=== PATIENT | male | born 1965 | race Caucasian/White ===

== ENCOUNTER 2021-09-16 07:34 | Outpatient (REF) | payer OTHER, SELFPAY ==
--- NOTE | ~2021-09-16 | XR_ITS ---
EXAMINATION: XR CHEST CLINICAL INFORMATION: Follow-up chest exam. COMPARISON: Previous chest x-ray with left RIBS 12/21/2012. TECHNIQUE: 2 views of the chest were obtained. FINDINGS: The lungs are well-expanded with patchy reticular and groundglass opacities throughout both lungs likely inflammatory or infectious etiology. The heart size and pulmonary vascularity is normal. No gross bony abnormality seen. XR/XR chest 2V IMPRESSION: Diffuse patchy reticular and groundglass opacities suggestive of inflammatory or infectious etiology. There are no recent chest exam available for comparison.
[2021-09-16 12:03] LABS: Alanine Aminotransferase 21 U/L (0-40); Alkaline Phosphatase 88 U/L (39-117); Anion Gap 10 (12-20); Aspartate Amino Transferase 18 U/L (5-37); Bilirubin Direct 0.2 mg/dL (0.0-0.5); Bilirubin Total 0.4 mg/dL (0.0-1.0); Blood Urea Nitrogen 11 mg/dL (9-16); Calcium 9.4 mg/dL (8.4-10.2); Carbon Dioxide 28 mmol/L (22-29); Chloride 106 mmol/L (96-108); Cholesterol 221 mg/dL; Estimated Glomerular Filt Rate > 60; Glucose Fasting 90 mg/dL (60-99); HDL Cholesterol 43 mg/dL; LDL Cholesterol Calculated 163 mg/dl; Potassium 4.4 mmol/L (3.3-5.1); Sodium 140 mmol/L (135-145); Total Protein 6.8 g/dL (6.5-8.0); Triglycerides 79 mg/dL
== END 2021-09-16 07:35 | disposition home or self-care (01) ==
LOC: HO.HMGCLDS 07:34
PROVIDERS: PCP Internal Medicine; Visit Provider Internal Medicine
DX: U07.1 COVID-19 (principal); J12.82 Pneumonia due to coronavirus disease 2019; R79.89 Other specified abnormal findings of blood chemistry; M21.611 Bunion of right foot; I10 Essential (primary) hypertension
CPT/HCPCS: 36415; 71046; 80048; 80053; 80061; 82248

== ENCOUNTER → 2021-09-28 11:35 | Outpatient (BNVA) | payer OTHER, SELFPAY | PROVIDERS: PCP Internal Medicine; Visit Provider Internal Medicine Pulmonary Disease | DX: U09.9 Post COVID-19 condition, unspecified (principal); R06.00 Dyspnea, unspecified; R91.8 Other nonspecific abnormal finding of lung field | CPT/HCPCS: 99202 ==

== ENCOUNTER 2021-10-19 08:14 | Outpatient (REF) | payer OTHER, SELFPAY ==
--- NOTE | 2021-10-19 11:25 | PFT_ITS ---
INDICATION: Dyspnea. SPIROMETRY: The FEV1 to FVC of 81% with an FEV1 of 3.93 L, which is 104% predicted and an FVC of 4.88 L which is 99% predicted. The patient refused the bronchodilator therapy, so therefore post bronchodilator numbers were not performed. Maximum voluntary ventilation 104% predicted. LUNG VOLUMES: Total lung capacity 91% of predicted with an expiratory reserve volume of 72% of predicted. DIFFUSION CAPACITY: DLCO 66% predicted. COMPARISONS: None to review. INTERPRETATION: No obstructive nor restrictive ventilatory defects identified. Again, bronchodilators were not used. Normal maximum voluntary ventilation. Lung volumes were within normal limits. However, the patient does have an isolated moderate diffusion impairment. Therefore, occult interstitial lung conditions and pulmonary vascular conditions should be considered. Should also correct for hemoglobin. Clinical correlation warranted. Les Lopez MD MR/MODL / [id number]
== END 2021-10-19 08:15 | disposition home or self-care (01) ==
LOC: HO.RESP 08:14
PROVIDERS: PCP Internal Medicine; Visit Provider Internal Medicine Pulmonary Disease
DX: U09.9 Post COVID-19 condition, unspecified (principal)
CPT/HCPCS: 94010; 94727; 94729

== ENCOUNTER 2021-10-19 08:59 | Outpatient (REF) | payer OTHER, SELFPAY ==
--- NOTE | ~2021-10-19 | CT_ITS ---
EXAMINATION: CT chest wo con. CLINICAL INFORMATION: Status post COVID. COMPARISON: No prior CT available for comparison. TECHNIQUE: Multidetector volumetric CT imaging of the chest was done. Axial MIP volume rendering provided. Sagittal and coronal reformatted images were obtained. This CT examination was performed using dose optimization techniques as appropriate, variously including the following: *Automated exposure control *Adjustment of mA and/or kV according to patient size (this includes techniques or standardized protocols for targeted exams where dose is matched to indication/reason for exam; i.e. extremities or head) *Use of iterative reconstruction technique CONTRAST: Noncontrasted study. 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 LUNGS: Lung parenchyma: There are patchy interstitial groundglass opacities involving upper and lower lobes, although nonspecific compatible with patient history of viral pneumonia. Lung nodules/masses: There is no suspicious lung mass. AIRWAYS: Trachea and bronchi are normal. PLEURA: No pleural effusion or pneumothorax. MEDIASTINUM AND YOLANDA: No mediastinal, hilar or axillary lymphadenopathy. No mediastinal mass. VESSELS: HEART AND PERICARDIUM: Thoracic aorta is normal in size. Heart is normal in size. No pericardial effusion. Mild coronary calcifications. Pulmonary arteries are normal in size. LOWER NECK, AXILLA: The visualized thyroid gland is unremarkable. No axillary mass or adenopathy. VISUALIZED ABDOMEN: Unremarkable CHEST WALL AND BONES: No chest wall mass. The visualized bony thorax is within normal limits. CT/CT chest wo con IMPRESSION: *Multiple bilateral patchy interstitial groundglass opacification diffusely involving both lungs, although nonspecific compatible with patient history of atypical viral pneumonia. *No dense lobar consolidation. *No Lymphadenopathy. No pleural effusion. *Mild coronary calcifications.
== END 2021-10-19 09:00 | disposition home or self-care (01) ==
LOC: HO.CT 08:59
PROVIDERS: PCP Internal Medicine; Visit Provider Internal Medicine Pulmonary Disease
DX: R93.89 Abnormal findings on diagnostic imaging of other specified body structures (principal); U09.9 Post COVID-19 condition, unspecified
CPT/HCPCS: 71250

== ENCOUNTER → 2021-11-20 08:30 | Outpatient (REF) | payer OTHER, SELFPAY ==
--- NOTE | 2021-11-20 08:33 | CA_ITS ---
Transthoracic Echocardiogram Patient (Last, First, Middle): Reilly Nino, Gender: Male Date of : 1965 Age: 56 Procedure Date: 11/20/2021 Procedure Type: Transthoracic Echocardiogram Location: OP Height: 177.8 cm Weight: 81.65 kg BSA: 2.00 m2 Heart Rate: bpm BP: 140 / 90 mmHg Draw Frame Tender: TANK Referring MD: Blossom Cui MD Symptoms: R93.89 - Abnormal findings on diagnostic imaging of other... Study Quality: Good Conclusions: - Normal left ventricular size, thickness, and systolic function. - Diastolic function is normal for age. - Normal right ventricular cavity size and systolic function. Findings Left Ventricle Normal left ventricular size, thickness, and systolic function. The visually estimated ejection fraction is between 55-60%. There is no evidence of regional wall motion abnormalities. Diastolic function is normal for age. Right Ventricle Normal right ventricular cavity size and systolic function. Atria The left atrium is normal in size. The right atrium is likely dilated. Aortic Valve Normal aortic valve structure and function. There is no aortic valve stenosis. There is no aortic valve regurgitation. Mitral Valve Normal mitral valve structure and function. There is no mitral valve regurgitation. There is no mitral valve stenosis. Pulmonic Valve Normal pulmonic valve structure and function. There is no pulmonic valve regurgitation. Tricuspid Valve Normal tricuspid valve structure and function. There is trace tricuspid valve regurgitation. Normal right atrial pressure. There is no evidence of pulmonary hypertension. Great Vessels All visible segments of the aorta are normal in size. The visualized portions of the pulmonary artery and branches are normal. Venous The inferior vena cava is normal in size and collapses greater than 50% with inspiration. Pericardium/Pleural There is no evidence of pericardial effusion. Prior Study Comparison No prior study available for comparison. Measurements 2D Linear Measurements IVSd: 1.00 0.6-0.9/0.6-1.0 cm LVIDd: 4.65 3.9-5.3/4.2-5.9 cm LVIDd Index: 2.33 2.4-3.2/2.2-3.1 cm/m2 LVIDs: 2.96 2.0-3.6 cm LVPWd: 1.14 0.7-1.1 cm Ao Root: 3.50 2.1-3.5 cm LA Diam: 3.70 2.7-3.8/3.0-4.0 cm LAIDs Index: 1.85 1.5-2.3 cm/m2 LV Mass: 221.00 67-162/88-224 g LV Mass Index: 110.50 43-95/49-115 g/m2 LVOT Diam: 2.10 3.0+(-)1.3 cm 2D Systolic Function EF 4C: 56.80 >55% EF 2C: 64.70 >55% EF BiP: 61.00 >55% Mitral Valve MV Pk E: 0.67 MV PK A: 0.66 MV Decel Time: 266.00 E/A: 1.00 E'Lateral: 13.20 E'Medial: 10.00 E/E' Med: 6.70 E/E' Lat: 5.10 PHT: 78.00 MVA PHT: 2.82 Decel [place]: 2.53 Aortic Valve AoV Pk Jose: 1.48 AoV Mn Jose: 1.09 AoV VTI: 0.34 AoV Pk Grad: 9.00 Aov Mn Grad: 5.00 IVY Cont.VTI: 2.36 LVOT LVOT Pk Jose: 1.11 LVOT Mn Jose: 0.82 LVOT VTI: 0.23 LVOT Pk Grad: 5.00 LVOT Mn Grad: 3.00 LVOT Diam: 2.10 LVOT Area: 3.46 Diastolic Function MV Pk E: 0.67 MV Pk A: 0.66 E/A: 1.00 E'Medial: 10.00 E/E' Med: 6.70 E' Laterial: 13.20 E/E' Lat: 5.10 Right Ventricle TAPSE (mm): 23.00 TVS' Jose: 10.60 Tricuspid Valve TR Pk Jose: 2.13 TR Pk Grad: 18.00 RA Press: 3.00 RVSP: 21.00 Great Vessels Aorta Ao Root-2D: 3.50 2.0-3.7 cm Ao Asc: 3.30 2.1-3.4 cm Ao Arch: 3.30 Updated in Other Vendor System with Status of Final Terry Ghosh MD electronically signed on 11/22/2021 10:09:41 PM with status of Final
== END ==
LOC: HO.CARD 08:30
PROVIDERS: PCP Internal Medicine; Visit Provider Internal Medicine
DX: R06.02 Shortness of breath (principal); U09.9 Post COVID-19 condition, unspecified; M79.89 Other specified soft tissue disorders; R93.89 Abnormal findings on diagnostic imaging of other specified body structures
CPT/HCPCS: 93306

== ENCOUNTER 2021-11-30 07:06 | Outpatient (REF) | payer OTHER, SELFPAY ==
[2021-11-30 11:38] LABS: Appearance Urine CLEAR; Color Urine YELLOW; Glucose Urine UA NEG (NEG); Leukocyte Esterase Urine NEG (NEG); Nitrite Urine NEG (NEG); PH 6.5 (5.0-8.0); Urine Blood NEG (NEG); Urine Ketones NEG (NEG); Urine Protein NEG (NEG-TRACE)
[2021-11-30 11:44] LABS: MANUAL DIFF FLAG NO
[2021-11-30 11:50] LABS: Basophils Percent Auto 0.4 % (0-2); Eosinophils Absolute Auto 0.1 X10*3/uL (0.0-0.4); Eosinophils Percent Auto 2.5 % (0-4); Hematocrit 44.8 % (42.0-52.0); Hemoglobin 14.6 g/dl (14.0-18.0); Imm Gran Abs Auto 0.02 X10*3/uL (0.00-0.03); Imm Gran Pct Auto 0.4 % (0.0-0.4); Lymphocytes Absolute Auto 2.1 X10*3/uL (1.2-4.9); Lymphocytes Percent Auto 40.4 % (20-40); Mean Corpuscular HGB Conc 32.6 g/dl (31.0-36.0); Mean Corpuscular Hemoglobin 30.6 pg (27.0-33.0); Mean Corpuscular Volume 93.9 fL (80.0-98.0); Mean Platelet Volume 11.5 fL (9.4-12.4); Neutrophils Absolute Auto 1.9 x10*3/uL (2.0-8.3); Neutrophils Percent Auto 37.3 % (45-73); Platelet Count 247 X10*3/uL (160-400); Red Blood Count 4.77 X10*6/uL (4.60-5.80); Red Cell Distribution Width 12.5 % (11.0-16.0); White Blood Count 5.2 X10*3/uL (4.8-10.8)
[2021-11-30 11:56] LABS: Estimated Average Glucose 105 mg/dL; Hemoglobin A1c % 5.3 %
[2021-11-30 12:12] LABS: Alanine Aminotransferase 20 U/L (0-40); Albumin Level 4.2 g/dL (3.5-5.0); Alkaline Phosphatase 70 U/L (39-117); Anion Gap 11 (12-20); Aspartate Amino Transferase 21 U/L (5-37); Bilirubin Total 0.2 mg/dL (0.0-1.0); Blood Urea Nitrogen 15 mg/dL (9-16); Calcium 9.5 mg/dL (8.4-10.2); Carbon Dioxide 30 mmol/L (22-29); Chloride 105 mmol/L (96-108); Cholesterol 193 mg/dL; Estimated Glomerular Filt Rate > 60; Glucose Fasting 99 mg/dL (60-99); HDL Cholesterol 43 mg/dL; LDL Cholesterol Calculated 138 mg/dl; Potassium 4.8 mmol/L (3.3-5.1); Sodium 141 mmol/L (135-145); Triglycerides 64 mg/dL
[2021-11-30 12:19] LABS: TSH reflex Free T4 1.69 uIU/mL (0.32-4.0)
== END 2021-11-30 07:07 | disposition home or self-care (01) ==
LOC: HO.HMGCLDS 07:06
PROVIDERS: Visit Provider Internal Medicine
DX: E78.9 Disorder of lipoprotein metabolism, unspecified (principal); I10 Essential (primary) hypertension; M79.89 Other specified soft tissue disorders; R35.89 Other polyuria; R68.2 Dry mouth, unspecified; R79.89 Other specified abnormal findings of blood chemistry; I34.1 Nonrheumatic mitral (valve) prolapse
CPT/HCPCS: 36415; 80053; 80061; 81003; 83036; 84443; 85025

== ENCOUNTER 2022-07-21 08:56 | Outpatient (REF) | payer OTHER, SELFPAY ==
[2022-07-21 11:40] LABS: Alanine Aminotransferase 26 U/L (0-40); Albumin Level 4.6 g/dL (3.5-5.0); Alkaline Phosphatase 54 U/L (39-117); Anion Gap 12 (12-20); Aspartate Amino Transferase 23 U/L (5-37); Bilirubin Total 0.7 mg/dL (0.0-1.0); Blood Urea Nitrogen 20 mg/dL (9-16); Calcium 9.5 mg/dL (8.4-10.2); Carbon Dioxide 29 mmol/L (22-29); Chloride 101 mmol/L (96-108); Estimated Glomerular Filt Rate > 60; Glucose Random 62 mg/dL (60-115); Potassium 3.8 mmol/L (3.3-5.1); Sodium 138 mmol/L (135-145); Total Protein 7.4 g/dL (6.5-8.0)
== END 2022-07-21 08:57 | disposition home or self-care (01) ==
LOC: HO.HMGCLDS 08:56
PROVIDERS: PCP Internal Medicine; Visit Provider Internal Medicine
DX: Z00.01 Encounter for general adult medical examination with abnormal findings (principal); E78.9 Disorder of lipoprotein metabolism, unspecified; I10 Essential (primary) hypertension
CPT/HCPCS: 36415; 80053

== ENCOUNTER 2023-01-26 06:43 | Outpatient (REF) | payer OTHER, SELFPAY ==
[2023-01-26 11:39] LABS: MANUAL DIFF FLAG NO
[2023-01-26 11:57] LABS: Basophils Percent Auto 0.5 % (0-2); Eosinophils Absolute Auto 0.2 X10*3/uL (0.0-0.4); Eosinophils Percent Auto 2.9 % (0-4); Hematocrit 43.5 % (42.0-52.0); Hemoglobin 14.6 g/dl (14.0-18.0); Imm Gran Abs Auto 0.01 X10*3/uL (0.00-0.03); Imm Gran Pct Auto 0.2 % (0.0-0.4); Lymphocytes Absolute Auto 2.5 X10*3/uL (1.2-4.9); Lymphocytes Percent Auto 44.4 % (20-40); Mean Corpuscular HGB Conc 33.6 g/dl (31.0-36.0); Mean Corpuscular Hemoglobin 31.1 pg (27.0-33.0); Mean Corpuscular Volume 92.8 fL (80.0-98.0); Mean Platelet Volume 10.7 fL (9.4-12.4); Monocytes Absolute Auto 0.7 X10*3/uL (0.1-1.2); Monocytes Percent Auto 12.2 % (2-11); Neutrophils Absolute Auto 2.2 x10*3/uL (2.0-8.3); Neutrophils Percent Auto 39.8 % (45-73); Platelet Count 251 X10*3/uL (160-400); Red Blood Count 4.69 X10*6/uL (4.60-5.80); Red Cell Distribution Width 12.9 % (11.0-16.0); White Blood Count 5.6 X10*3/uL (4.8-10.8)
[2023-01-26 12:18] LABS: Alanine Aminotransferase 24 U/L (0-40); Albumin Level 4.3 g/dL (3.5-5.0); Alkaline Phosphatase 58 U/L (39-117); Anion Gap 12 (12-20); Aspartate Amino Transferase 21 U/L (5-37); Bilirubin Total 0.7 mg/dL (0.0-1.0); Blood Urea Nitrogen 20 mg/dL (9-16); Calcium 9.4 mg/dL (8.4-10.2); Carbon Dioxide 28 mmol/L (22-29); Chloride 106 mmol/L (96-108); Cholesterol 235 mg/dL; Estimated Glomerular Filt Rate > 60; Glucose Fasting 94 mg/dL (60-99); Glucose Random 93 mg/dL (60-115); HDL Cholesterol 47 mg/dL; LDL Cholesterol Calculated 172 mg/dl; Potassium 4.1 mmol/L (3.3-5.1); Sodium 142 mmol/L (135-145); Triglycerides 84 mg/dL; Uric Acid 6.8 mg/dL (3.4-7.0)
[2023-01-26 12:37] LABS: TSH reflex Free T4 2.33 uIU/mL (0.32-4.0)
== END 2023-01-26 06:44 | disposition home or self-care (01) ==
LOC: HO.HMGCLDS 06:43
PROVIDERS: PCP Internal Medicine; Visit Provider Internal Medicine
DX: Z00.01 Encounter for general adult medical examination with abnormal findings (principal); I10 Essential (primary) hypertension; M79.674 Pain in right toe(s)
CPT/HCPCS: 36415; 80053; 80061; 84443; 84550; 85025

== ENCOUNTER 2023-05-17 08:38 | Outpatient (AMB) | payer OTHER, SELFPAY ==
--- NOTE | 2023-05-17 08:41 | MHC.PC.OV ---
Vital Signs 05/17/23 08:43 Height 51 ft Weight 185 lb 2 oz BMI 0.3 BP 128/86 Blood Pressure Location Rt brachial Position Sitting Pulse 84 Pulse Source Pulse Oximeter Pulse Oximetry (%) 98 Oxygen Delivery Method Room Air Intake Visit Reasons: 4m follow up labs Allergies lisinopril Allergy (Unknown, Verified 05/17/23 08:43) cough Medication List - Last Reconciled 05/17/23 by Blossom Cui MD atorvastatin 20 mg PO DAILY losartan-hydrochlorothiazide 100-25 mg 1 tab PO DAILY 90 days Tobacco use date assessed: 05/17/23 Dental Screening Dental Screen Date: 05/17/23 Did you have a dental visit in the last 12 months?: Yes Did you have a dental problem in the last 6 months where you did not have access to dental care?: No Was dental information given to patient?: No HPI 4m follow up labs HPI Details Patient is a 58-year-old male came in today for his regular follow-up appointment His cholesterol came back high in December I sent simvastatin for him which he never started Patient says that he was trying to control his diet and would like to see what the numbers are now before he starts the medication Lab order placed to be done fasting Blood pressure is 128/86 patient is tolerating medication no side effect. Follow-up 3 months [facility] Surgical History No pertinent past surgical history Family History Father HTN (hypertension) Diabetes mellitus Mother No problems noted. Sister HTN (hypertension) Social History Housing: House Patient Tobacco Use Status: Never used Tobacco e-Cigarette/Vaping Use: Never Used service: Yes Current occupational status: employed Cognitive needs: No Hearing needs: No Vision needs: No Questionnaire Thrive Questionnaire Date Thrive assessed: 11/27/21 AUDIT C Alcohol Use Questionnaire (AUDIT-C) 1. How often do you have a drink containing alcohol?: Never 3. How often do you have six or more drinks on one occasion?: Never Total Score: 0 Score Reviewed/Action Taken: Yes MAIK-7 AMB Questionnaire MAIK-7 Date MAIK - 7 assessed: 01/28/22 Source: Developed by Drs. Reji Henson, Manuela Jordan, Galdino Harris and colleagues, with an educational olman from [employer]. Review of Systems Const Denies chills and Denies fever(s) ENT Denies epistaxis and Denies nasal discharge Card Denies chest pain Resp Denies chest congestion, Denies cough and Denies hemoptysis GI Denies diarrhea and Denies nausea Skin/Breast Denies rash Neuro Reports no additional complaints Psych Reports no additional complaints Endo Reports no additional complaints Physical exam (Primary Care) Vital Signs: Last Vital Signs Pulse 84 05/17/23 08:43 BP 128/86 05/17/23 08:43 Pulse Ox 98 05/17/23 08:43 Oxygen Delivery Method Room Air 05/17/23 08:43 BMI result Body Mass Index 0.3 Tobacco/Smoking Status: Tobacco use Status Tobacco use date assessed 05/17/23 05/17/23 08:45 Patient Tobacco Use Status Never used Tobacco 05/17/23 08:45 e-Cigarette/Vaping Use Never Used 05/17/23 08:45 Thrive Assessment: Date of Thrive Assessment Date Thrive assessed 11/27/21 05/17/23 08:45 Const General: cooperative, comfortable and no acute distress Orientation/consciousness: patient oriented x3 HENMT Head: Yes normocephalic Eyes General: appearance normal, both eyes and all related structures Neck Neck: Yes supple Resp Effort & Inspection: normal respiratory effort, no cough and no stridor Cardio Rhythm: regular rhythm Heart sounds: S1 normal heart sound present and S2 normal heart sound present Skin General skin exam: turgor normal Neuro General: patient oriented x3, tone normal and moves all extremities Extrem Right lower extremity: no edema Left lower extremity: no edema Assessment and Plan Assessment & Plan (1) Essential (primary) hypertension: Code(s): I10 - Essential (primary) hypertension (2) Nonrheumatic mitral (valve) prolapse: Code(s): I34.1 - Nonrheumatic mitral (valve) prolapse (3) Pain of right great toe: Code(s): M79.674 - Pain in right toe(s) (4) Lipid disorder: Code(s): E78.9 - Disorder of lipoprotein metabolism, unspecified Plan Patient is a 58-year-old male came in today for his regular follow-up appointment His cholesterol came back high in December I sent simvastatin for him which he never started Patient says that he was trying to control his diet and would like to see what the numbers are now before he starts the medication Lab order placed to be done fasting Blood pressure is 128/86 patient is tolerating medication no side effect. 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 Follow-up 3 months Orders: Orders Comprehensive [place]. Panel Fast Today E78.9 - Disorder of lipoprotein metabolism, unspecified, I10 - Essential (primary) hypertension, I34.1 - Nonrheumatic mitral (valve) prolapse, M79.674 - Pain in right toe(s) Lipid Panel Today E78.9 - Disorder of lipoprotein metabolism, unspecified, I10 - Essential (primary) hypertension, I34.1 - Nonrheumatic mitral (valve) prolapse, M79.674 - Pain in right toe(s) Uric Acid Today E78.9 - Disorder of lipoprotein metabolism, unspecified, I10 - Essential (primary) hypertension, I34.1 - Nonrheumatic mitral (valve) prolapse, M79.674 - Pain in right toe(s) Coding Level of Care Code Est Pt Level 3 (10434) Diagnoses Essential (primary) hypertension I10 Nonrheumatic mitral (valve) prolapse I34.1 Pain of right great toe M79.674 Lipid disorder E78.9
[2023-05-17 08:43] VITALS: BP 128/86; PULSE 84; O2SAT 98
== END 2023-05-17 09:12 | disposition home or self-care (01) ==
PROVIDERS: Visit Provider Internal Medicine
DX: I10 Essential (primary) hypertension (principal); I34.1 Nonrheumatic mitral (valve) prolapse; M79.674 Pain in right toe(s); E78.9 Disorder of lipoprotein metabolism, unspecified
CPT/HCPCS: 99213

== ENCOUNTER 2023-06-16 11:05 | Outpatient (AMB) | payer OTHER, SELFPAY ==
--- NOTE | 2023-06-16 12:41 | AM.OFFWIN_ITS ---
Intake Vital Signs 06/16/23 12:42 Height 5 ft 10 in Weight 184 lb 2 oz BMI 26.4 BP 130/68 Blood Pressure Location Lt brachial Position Sitting Pulse 98 Pulse Source Pulse Oximeter Temp 98.2 F Temp Source Temporal Artery Scan Pulse Oximetry (%) 99 Oxygen Delivery Method Room Air Intake Visit Reasons: EP Cough/Mucus [phone] Intake Note: Pt is here c/o cough and mucus build up. Pt states he tested negative for COVID about a week ago but later developed new symptoms. Patient Tobacco Use Status: Never used Tobacco Allergies lisinopril Allergy (Unknown, Verified 06/16/23 12:41) cough Do you need a note to return to daycare/school/sports/work: Yes HPI EP Cough/Mucus [phone] HPI Details Patient is a 58-year-old male comes to the walk-in clinic complaining of cough and productive phlegm, as well as mild nasal congestion. No shortness of breath or chest pain, fever or chills, headache, ear pain, discharge from the ear, sore throat, difficulty swallowing, anorexia, nausea vomiting or diarrhea, dizziness or weakness, myalgias or malaise, or other significant associated symptoms. Symptoms started about a week ago. No underlying immuno compromising issues. Home COVID test negative [facility] Surgical History No pertinent past surgical history Family History Father HTN (hypertension) Diabetes mellitus Mother No problems noted. Sister HTN (hypertension) Social History Housing: House Patient Tobacco Use Status: Never used Tobacco e-Cigarette/Vaping Use: Never Used service: Yes Current occupational status: employed Cognitive needs: No Hearing needs: No Vision needs: No Review of Systems Const All systems reviewed & are unremarkable except as noted in HPI and below Physical Exam Vital Signs: Last Vital Signs Temp 98.2 F 06/16/23 12:42 Pulse 98 06/16/23 12:42 BP 130/68 06/16/23 12:42 Pulse Ox 99 06/16/23 12:42 Oxygen Delivery Method Room Air 06/16/23 12:42 BMI result Body Mass Index 26.4 Const General: cooperative, healthy appearing, comfortable, no acute distress, alert, awake, Physically active and well groomed; No anxious, diaphoretic, intoxicated appearing, poor hygiene or tired appearing Nutritional Appearance: average body habitus Limitations: no limitations HEENT Head: Yes normal to inspection, Yes normocephalic and Yes atraumatic Ears: hearing grossly normal bilaterally, external ears normal, TM's normal bilaterally and EAC's normal General nose exam: Normal external nose present, Normal septum present, Abnormal mucous membranes and turbinates present and Nasal discharge present clear Face and sinus: Yes normal facial exam, Yes sinuses nontender and Yes face symmetric Mouth: Normal oral and palatal mucosa present, lip normal and tongue normal Throat: Yes posterior oropharynx normal, Yes abnormal tonsil (mildly erythematous bilaterally), No peritonsillar mass, No postnasal drainage, No uvular edema and No cobblestoning Eyes General: appearance normal, both eyes and all related structures Neck Neck: Yes normal visual inspection, Yes trachea midline and Yes supple Resp Effort & Inspection: normal respiratory effort, able to speak in complete sentences, no audible wheezes, no cough, no grunting, not labored, no nasal flaring, no retractions and symmetric chest movement Auscultation: clear to auscultation bilaterally, no crackles, no rales, no rhonchi, no wheezes, lung sounds not diminished and No rub present Cardio Palpation: normal PMI Rate: regular rate Rhythm: regular rhythm Heart sounds: S1 normal heart sound present and S2 normal heart sound present Skin Other: Good color, warm and dry Psych Appearance: grossly normal Mental Status: mental status grossly normal Speech and movement: Normal speech and movement present Affect: normal affect Attitude: cooperative Thought process: Normal thought process present Insight: Good insight present (Psych) Judgement: Good judgement present (Psych) Assessment & Plan Assessment & Plan (1) URI (upper respiratory infection): Code(s): J06.9 - Acute upper respiratory infection, unspecified Plan: Patient with upper respiratory infection, pending COVID testing respiratory panel to rule out flu COVID and RSV. Home COVID test was negative however. We discussed supportive car including adequate fluids and rest. Will write him a trial of benzonatate to help relieve mild cough. Follow-up if symptoms persist or worsen Orders: Orders SARS-CoV2/FLU/RSV 06/16/23 R05.9 - Cough, unspecified Medications: New benzonatate 200 mg PO BID-TID PRN 30 caps 0RF cough Coding Level of Care Code Est Pt Level 4 (72905) Diagnoses URI (upper respiratory infection) J06.9
[2023-06-16 12:42] VITALS: BP 130/68; PULSE 98; TEMP 36.8; O2SAT 99; BMI 26.4
== END 2023-06-16 13:41 | disposition home or self-care (01) ==
PROVIDERS: PCP Internal Medicine; Visit Provider Physician Assistant Medical
DX: J06.9 Acute upper respiratory infection, unspecified (principal)
CPT/HCPCS: 99214

== ENCOUNTER 2023-06-16 18:12 | Outpatient (REF) | payer OTHER, SELFPAY ==
[2023-06-16 19:25] LABS: Influenza A PCR NEGATIVE (Negative); Influenza B PCR NEGATIVE (Negative); Resp Syncy Virus RNA Qual PCR NEGATIVE (Negative); SARS COV2 PCR INHOUSE NEGATIVE (Negative)
== END 2023-06-16 18:13 | disposition home or self-care (01) ==
LOC: HO.LNP 18:12
PROVIDERS: Visit Provider Physician Assistant Medical
DX: Z20.822 Contact with and (suspected) exposure to COVID-19 (principal); R05.9 Cough, unspecified
CPT/HCPCS: 0241U

== ENCOUNTER 2024-01-16 06:42 | Outpatient (REF) | payer OTHER, SELFPAY ==
[2024-01-16 11:55] LABS: Alanine Aminotransferase 26 U/L (0-40); Albumin Level 4.2 g/dL (3.5-5.0); Alkaline Phosphatase 57 U/L (39-117); Anion Gap 13 (12-20); Aspartate Amino Transferase 24 U/L (5-37); Bilirubin Total 0.6 mg/dL (0.0-1.0); Blood Urea Nitrogen 15 mg/dL (9-16); Calcium 9.4 mg/dL (8.4-10.2); Carbon Dioxide 27 mmol/L (22-29); Chloride 106 mmol/L (96-108); Cholesterol 244 mg/dL (<200); Estimated Glomerular Filt Rate > 60; Glucose Fasting 91 mg/dL (60-99); HDL Cholesterol 49 mg/dL (>40); Potassium 4.2 mmol/L (3.3-5.1); Sodium 142 mmol/L (135-145); Total Protein 7.3 g/dL (6.5-8.0); Uric Acid 6.2 mg/dL (3.4-7.0)
[2024-01-16 12:02] LABS: LDL Cholesterol Calculated 173 mg/dL (<100); Triglycerides 111 mg/dL (<150)
== END 2024-01-16 06:43 | disposition home or self-care (01) ==
LOC: HO.HMGCLDS 06:42
PROVIDERS: PCP Internal Medicine; Visit Provider Internal Medicine
DX: I10 Essential (primary) hypertension (principal); I34.1 Nonrheumatic mitral (valve) prolapse; M79.674 Pain in right toe(s); E78.9 Disorder of lipoprotein metabolism, unspecified
CPT/HCPCS: 36415; 80053; 80061; 84550

== ENCOUNTER 2024-01-20 08:01 | Outpatient (AMB) | payer OTHER, SELFPAY ==
[2024-01-20 08:06] VITALS: BP 128/78; PULSE 66; O2SAT 98; BMI 26.5
--- NOTE | 2024-01-20 08:06 | A.OFFPC_ITS ---
Vital Signs 01/20/24 08:06 Height 5 ft 10 in Weight 185 lb BMI 26.5 BP 128/78 Blood Pressure Location Lt brachial Position Sitting Pulse 66 Pulse Source Pulse Oximeter Pulse Oximetry (%) 98 Oxygen Delivery Method Room Air Intake Visit Reasons: PE Allergies lisinopril Allergy (Unknown, Verified 01/20/24 08:08) cough Medication List - Last Reconciled 01/20/24 by Blossom Cui MD atorvastatin 20 mg PO DAILY losartan-hydrochlorothiazide 100-25 mg 1 tab PO DAILY 90 days Tobacco use date assessed: 01/20/24 Dental Screening Dental Screen Date: 01/20/24 Did you have a dental visit in the last 12 months?: Yes Did you have a dental problem in the last 6 months where you did not have access to dental care?: No Was dental information given to patient?: Patient has dentist HPI PE HPI Details Physical exam appointment Patient is a 59-year-old gentleman, doing well, exercising regularly However not taking his simvastatin regularly, recent labs shows LDL of 173 Patient says that he will start taking it regularly, we will recheck labs again before his next visit in 4 months Continued to decline colonoscopy Blood pressure is stable patient is tolerating losartan hydrochlorothiazide 100- 25 mg Patient has a fair skin and is due for skin cancer screening, referral placed. [facility] Surgical History No pertinent past surgical history Family History Father HTN (hypertension) Diabetes mellitus Mother No problems noted. Sister HTN (hypertension) Social History Housing: House Patient Tobacco Use Status: Never used Tobacco e-Cigarette/Vaping Use: Never Used service: Yes Current occupational status: employed Cognitive needs: No Hearing needs: No Vision needs: No Questionnaire PHQ-9 Over the last 2 weeks, how often have you been bothered by any of the following problems? 1. Little interest or pleasure in doing things: not at all 2. Feeling down, depressed, or hopeless: not at all 3. Trouble falling or staying asleep, or sleeping too much: not at all 4. Feeling tired or having little energy: not at all 5. Poor appetite or overeating: not at all 6. Feeling bad about yourself - or that you are a failure or have let yourself or your family down: not at all 7. Trouble concentrating on things, such as reading the newspaper or watching television: not at all 8. Moving or speaking so slowly that other people could have noticed. Or the opposite - being so fidgety or restless that you have been moving around a lot more than usual: not at all 9. Thoughts that you would be better off or of hurting yourself in some way: not at all Total score: 0 Depression Screening Interpretation: Negative Depression Screening Done: Yes 02372 - PHQ-9 Billing: Yes Source: Developed by Drs. Reji Henson, Manuela Jordan, Galdino Harris and colleagues, with an educational olman from [employer]. Thrive Questionnaire Date Thrive assessed: 01/20/24 I am a: Patient What is your living situation today?: I have a steady place to live Within the past 12 months, did the food you bought not last and you didn't have the money to get more?: Never true Within the past 12 months, did you worry whether your food would run out before you got money to buy more?: Never true Do you have trouble paying for medicines?: No Do you have trouble getting transportation to medical appointments?: No Do you have trouble paying your heating and electricity bill?: No Do you have trouble taking care of your child, family member or friend?: No Do you have trouble with day-to-day activities such as bathing, preparing meals, shopping, managing finances, etc.?: No Are you currently unemployed and looking for a job?: No Are you interested in more education?: No Please select the resources that you would like help with: None Currently or been in a relationship where the following occur: no concerns reported THRIVE Score: 0 AUDIT C Alcohol Use Questionnaire (AUDIT-C) 1. How often do you have a drink containing alcohol?: Never 3. How often do you have six or more drinks on one occasion?: Never Total Score: 0 Score Reviewed/Action Taken: Yes MAIK-7 AMB Questionnaire MAIK-7 Date MAIK - 7 assessed: 01/20/24 Feeling nervous, anxious, or on edge: 0 = Not at all Not being able to stop or control worryin = Not at all Worrying too much about different things: 0 = Not at all Trouble relaxin = Not at all Being so restless that it is hard to sit still: 0 = Not at all Becoming easily annoyed or irritable: 0 = Not at all Feeling afraid as if something awful might happen: 0 = Not at all Total MAIK-7 score (0-4 normal; 5-9 mild; 10-14 moderate; 15-21 severe): 0 Source: Developed by Drs. Reji Henson, Manuela Jordan, Galdino Harris and colleagues, with an educational olman from [employer]. MAIK-7 Assessment Billing MAIK-7 Assessment Tool: MAIK-7 Assessment 75183 Review of Systems Const Denies chills, Denies fever(s) and Denies headache(s) Eyes Denies blurry vision ENT Denies headache(s), Denies nasal discharge, Denies nasal obstruction, Denies odynophagia and Denies sinus pain Card Denies chest pain at rest and Denies chest pain with activity Resp Denies cough and Denies hemoptysis GI Denies diarrhea, Denies odynophagia, Denies vomiting and Denies hematemesis Reports as per HPI Musc Denies abnormal gait Skin/Breast Reports as per HPI Neuro Denies Neuro-related abnormal movements, Denies Abnormal speech present, Denies abnormal gait, Denies headache(s) and Denies Sensory deficit (Neuro) Psych Denies mood swings and Denies paranoia Endo Reports as per HPI Avelino/Lymph Reports as per HPI Aller/Immun Reports as per HPI Physical exam (Primary Care) BMI result Body Mass Index 26.5 Tobacco/Smoking Status: Tobacco use Status Tobacco use date assessed 05/17/23 06/16/23 11:04 Patient Tobacco Use Status Never used Tobacco 06/16/23 12:43 e-Cigarette/Vaping Use Never Used 06/16/23 11:04 Depression Screening Interpretation: Negative Thrive Assessment: Date of Thrive Assessment Date Thrive assessed 11/27/21 06/16/23 11:04 Currently or been in a relationship where the following occur: no concerns reported Const General: cooperative, comfortable and no acute distress Orientation/consciousness: patient oriented x3 HENMT Head: Yes normocephalic and Yes atraumatic Eyes General: appearance normal, both eyes and all related structures Pupils: Equal, round and reactive pupils present EOM: EOMs intact bilaterally Neck Neck: Yes supple and No lymphadenopathy Thyroid: Thyroid normal Lymphatic: no lymphadenopathy noted Resp Effort & Inspection: normal respiratory effort and able to speak in complete sentences Auscultation: clear to auscultation bilaterally Cardio Heart sounds: S1 normal heart sound present and S2 normal heart sound present GI Palpation (GI): Soft to palpation and nontender Auscultation: normal bowel sounds General: Yes no CVA tenderness Back/Spine/Pelvis Back: no CVA tenderness Skin General skin exam: elasticity normal and turgor normal Neuro General: patient oriented x3 and gait normal Cranial nerves: Yes Equal, round and reactive pupils present Speech: No Abnormal speech present Sensory Exam: No Sensory deficit (Neuro) Coordination: tandem gait normal and Romberg test negative Extrem General: Yes normal exam except as noted and No edema Assessment and Plan Assessment & Plan (1) Encounter for general adult medical examination with abnormal findings: Code(s): Z00.01 - Encounter for general adult medical examination with abnormal findings (2) Lipid disorder: Code(s): E78.9 - Disorder of lipoprotein metabolism, unspecified (3) Essential (primary) hypertension: Code(s): I10 - Essential (primary) hypertension (4) Nonrheumatic mitral (valve) prolapse: Code(s): I34.1 - Nonrheumatic mitral (valve) prolapse Plan Patient is a 47-year-old female this is a telemedicine video conference Patient have psychiatric illness of severe OCD, which present with picking on skin She has developed sore on her right buttock which is oozing slightly grayish yellow secretions I am prescribing doxycycline for the patient she is to take 1 b.i.d. for 7 days Patient is to get back to me if still have the sore after finishing antibiotic. Her OCD she will address with her psychiatrist Orders: Orders Lipid Panel Today E78.9 - Disorder of lipoprotein metabolism, unspecified, I10 - Essential (primary) hypertension Comprehensive [place]. Panel Fast Today E78.9 - Disorder of lipoprotein metabolism, unspecified, I10 - Essential (primary) hypertension Referrals Dermatology Referral Z12.83 - Encounter for screening for malignant neoplasm of skin Coding Level of Care Code Est Pt Prev Care 40-64y(53838) Diagnoses Encounter for general adult medical examination with abnormal findings Z00.01 Lipid disorder E78.9 Essential (primary) hypertension I10 Nonrheumatic mitral (valve) prolapse I34.1 Additional Codes MAIK-7 Assessment Billing - MAIK-7 Assessment Tool: MAIK-7 Assessment 11465 ([id number])
== END 2024-01-20 08:18 | disposition home or self-care (01) ==
PROVIDERS: Visit Provider Internal Medicine
DX: Z00.01 Encounter for general adult medical examination with abnormal findings (principal); E78.9 Disorder of lipoprotein metabolism, unspecified; I10 Essential (primary) hypertension; I34.1 Nonrheumatic mitral (valve) prolapse
CPT/HCPCS: 99396

== ENCOUNTER 2024-05-23 06:43 | Outpatient (REF) | payer OTHER, SELFPAY ==
[2024-05-23 11:14] LABS: Alanine Aminotransferase 28 U/L (0-40); Albumin Level 4.1 g/dL (3.5-5.0); Alkaline Phosphatase 53 U/L (39-117); Anion Gap 11 (12-20); Aspartate Amino Transferase 20 U/L (5-37); Bilirubin Total 0.5 mg/dL (0.0-1.0); Blood Urea Nitrogen 14 mg/dL (9-16); Calcium 9.4 mg/dL (8.4-10.2); Carbon Dioxide 25 mmol/L (22-29); Chloride 109 mmol/L (96-108); Cholesterol 145 mg/dL (<200); Estimated Glomerular Filt Rate > 60; Glucose Fasting 98 mg/dL (60-99); HDL Cholesterol 44 mg/dL (>40); LDL Cholesterol Calculated 82 mg/dL (<100); Sodium 141 mmol/L (135-145); Total Protein 6.8 g/dL (6.5-8.0); Triglycerides 99 mg/dL (<150)
== END 2024-05-23 06:44 | disposition home or self-care (01) ==
LOC: HO.HMGCLDS 06:43
PROVIDERS: PCP Internal Medicine; Visit Provider Internal Medicine
DX: E78.9 Disorder of lipoprotein metabolism, unspecified (principal); I10 Essential (primary) hypertension
CPT/HCPCS: 36415; 80053; 80061

== ENCOUNTER 2024-05-25 08:01 | Outpatient (AMB) | payer OTHER, SELFPAY ==
[2024-05-25 08:02] VITALS: BP 126/82; PULSE 71; O2SAT 100; BMI 26.4
--- NOTE | 2024-05-25 08:02 | MHC.PC.OV ---
Vital Signs 05/25/24 08:02 Height 5 ft 10 in Weight 184 lb BMI 26.4 BP 126/82 Blood Pressure Location Rt brachial Position Sitting Pulse 71 Pulse Source Pulse Oximeter Pulse Oximetry (%) 100 Oxygen Delivery Method Room Air Intake Visit Reasons: 4 month follow up Allergies lisinopril Allergy (Unknown, Verified 05/25/24 08:04) cough Medication List - Last Reconciled 05/25/24 by Blossom Cui MD atorvastatin 20 mg PO DAILY losartan-hydrochlorothiazide 100-25 mg 1 tab PO DAILY 90 days Tobacco use date assessed: 05/25/24 Dental Screening Dental Screen Date: 01/20/24 HPI 4 month follow up HPI Details Patient is a 59-year-old male came in today for his regular follow-up appointment Patient is doing well, LDL is within normal limit patient is on atorvastatin 20 mg and is tolerating medication Lab order placed to be done fasting in six-month Blood pressure is well-controlled, continue losartan hydrochlorothiazide 100-25 mg daily Follow-up 6 months [facility] Surgical History No pertinent past surgical history Family History Father HTN (hypertension) Diabetes mellitus Mother No problems noted. Sister HTN (hypertension) Social History Housing: House Patient Tobacco Use Status: Never used Tobacco e-Cigarette/Vaping Use: Never Used service: Yes Current occupational status: employed Cognitive needs: No Hearing needs: No Vision needs: No Questionnaire Thrive Questionnaire Date Thrive assessed: 01/20/24 AUDIT C Alcohol Use Questionnaire (AUDIT-C) 1. How often do you have a drink containing alcohol?: Monthly or less 2. How many drinks containing alcohol do you have on a typical day when you are drinking?: 1 or 2 3. How often do you have six or more drinks on one occasion?: Never Total Score: 1 MAIK-7 AMB Questionnaire MAIK-7 Date MAIK - 7 assessed: 01/20/24 Source: Developed by Drs. Reji Henson, Manuela Jordan, Galdino Harris and colleagues, with an educational olman from [employer]. Review of Systems Const Denies chills and Denies fever(s) ENT Denies epistaxis and Denies nasal discharge Card Denies chest pain Resp Denies chest congestion, Denies cough and Denies hemoptysis GI Denies diarrhea and Denies nausea Skin/Breast Denies rash Neuro Reports no additional complaints Psych Reports no additional complaints Endo Reports no additional complaints Physical exam (Primary Care) Vital Signs: Last Vital Signs Pulse 71 05/25/24 08:02 BP 126/82 05/25/24 08:02 Pulse Ox 100 05/25/24 08:02 Oxygen Delivery Method Room Air 05/25/24 08:02 BMI result Body Mass Index 26.4 Tobacco/Smoking Status: Tobacco use Status Tobacco use date assessed 05/25/24 05/25/24 08:05 Patient Tobacco Use Status Never used Tobacco 05/25/24 08:05 e-Cigarette/Vaping Use Never Used 05/25/24 08:05 Thrive Assessment: Date of Thrive Assessment Date Thrive assessed 01/20/24 05/25/24 08:05 Const General: cooperative, comfortable and no acute distress Orientation/consciousness: patient oriented x3 HENMT Head: Yes normocephalic Eyes General: appearance normal, both eyes and all related structures Neck Neck: Yes supple Resp Effort & Inspection: normal respiratory effort, no cough and no stridor Cardio Rhythm: regular rhythm Heart sounds: S1 normal heart sound present and S2 normal heart sound present Skin General skin exam: turgor normal Neuro General: patient oriented x3, tone normal and moves all extremities Extrem Right lower extremity: no edema Left lower extremity: no edema Assessment and Plan Assessment & Plan (1) Essential (primary) hypertension: Code(s): I10 - Essential (primary) hypertension (2) Nonrheumatic mitral (valve) prolapse: Code(s): I34.1 - Nonrheumatic mitral (valve) prolapse (3) Lipid disorder: Code(s): E78.9 - Disorder of lipoprotein metabolism, unspecified (4) Pain of right great toe: Code(s): M79.674 - Pain in right toe(s) Plan Patient is a 59-year-old male came in today for his regular follow-up appointment Patient is doing well, LDL is within normal limit patient is on atorvastatin 20 mg and is tolerating medication Lab order placed to be done fasting in six-month Blood pressure is well-controlled, continue losartan hydrochlorothiazide 100-25 mg daily Follow-up 6 months Orders: Orders Complete Blood Count Auto Diff 6 Months E78.9 - Disorder of lipoprotein metabolism, unspecified, I10 - Essential (primary) hypertension, I34.1 - Nonrheumatic mitral (valve) prolapse Comprehensive [place]. Panel Fast 6 Months E78.9 - Disorder of lipoprotein metabolism, unspecified, I10 - Essential (primary) hypertension, I34.1 - Nonrheumatic mitral (valve) prolapse Lipid Panel 6 Months E78.9 - Disorder of lipoprotein metabolism, unspecified, I10 - Essential (primary) hypertension, I34.1 - Nonrheumatic mitral (valve) prolapse Coding Level of Care Code Est Pt Level 3 (39329) Complex EM visit Add On G2211 Diagnoses Essential (primary) hypertension I10 Nonrheumatic mitral (valve) prolapse I34.1 Lipid disorder E78.9 Pain of right great toe M79.675
== END 2024-05-25 08:21 | disposition home or self-care (01) ==
PROVIDERS: PCP Internal Medicine; Visit Provider Internal Medicine
DX: I10 Essential (primary) hypertension (principal); I34.1 Nonrheumatic mitral (valve) prolapse; E78.9 Disorder of lipoprotein metabolism, unspecified; M79.674 Pain in right toe(s)
CPT/HCPCS: 99213; G2211

== ENCOUNTER 2024-08-03 08:03 | Outpatient (AMB) | payer OTHER, SELFPAY ==
[2024-08-03 08:07] VITALS: BP 130/90; PULSE 68; O2SAT 95; BMI 28.4
--- NOTE | 2024-08-03 08:07 | MHC.OFFWIV ---
Intake Vital Signs 08/03/24 08:07 Height 5 ft 10 in Weight 198 lb BMI 28.4 BP 130/90 H Pulse 68 Pulse Source Pulse Oximeter Pulse Oximetry (%) 95 Oxygen Delivery Method Room Air Intake Visit Reasons: EP itching on face, allergy? Intake Note: Patient here for itching face that has been going on for about 2 weeks. Patient Tobacco Use Status: Never used Tobacco Allergies lisinopril Allergy (Unknown, Verified 08/03/24 08:13) cough Do you need a note to return to daycare/school/sports/work: No HPI HPI Comments History of Present Illness Details Patient is a 59-year-old male complaining of itching above both eyebrows and near his ears. He states he wakes up in the middle of the night because it is so itchy. He also states the skin is very dry. He does tell me he use the same shampoo and body wash for many years and they discontinued it and he just changed to a new one but he is thinking maybe it is too strong for his skin because he has very sensitive skin. PENDING SALE TO [facility] Surgical History No pertinent past surgical history Family History Father HTN (hypertension) Diabetes mellitus Mother No problems noted. Sister HTN (hypertension) Social History Housing: House Patient Tobacco Use Status: Never used Tobacco e-Cigarette/Vaping Use: Never Used service: Yes Current occupational status: employed Cognitive needs: No Hearing needs: No Vision needs: No Review of Systems Const All systems reviewed & are unremarkable except as noted in HPI and below Physical Exam Vital Signs: Last Vital Signs Pulse 68 08/03/24 08:07 BP 130/90 H 08/03/24 08:07 Pulse Ox 95 08/03/24 08:07 Oxygen Delivery Method Room Air 08/03/24 08:07 BMI result Body Mass Index 28.4 Const General: cooperative, healthy appearing, comfortable, no acute distress and well developed Orientation/consciousness: patient oriented x3 Limitations: no limitations Eyes General: appearance normal, both eyes and all related structures Resp Effort & Inspection: normal respiratory effort and able to speak in complete sentences Skin Other: Small patches of pink and slightly dried skin above both eyebrows and near the hairline along the face/ear Neuro General: patient oriented x3 Assessment & Plan Assessment & Plan (1) Eczema: Code(s): L30.9 - Dermatitis, unspecified Qualifiers: Eczema type: unspecified Qualified Code(s): L30.9 - Dermatitis, unspecified Plan: Recommended using a face wash that is made for sensitive skin such as one by [employer]. Also recommended using hydrocortisone cream but being very careful not to get it on the eyelids or below the eyes as the skin is much thinner in that area. Muscle recommended taking a daily allergy pill Plan see above Coding Level of Care Code Est Pt Level 3 (29816) Diagnoses Eczema, unspecified type L30.9 Eczema type: unspecified
== END 2024-08-03 08:26 | disposition home or self-care (01) ==
PROVIDERS: PCP Internal Medicine; Visit Provider Physician Assistant
DX: L30.9 Dermatitis, unspecified (principal)

== ENCOUNTER → 2024-08-03 08:03 | Outpatient (BNVA) | payer OTHER, SELFPAY | PROVIDERS: PCP Internal Medicine | DX: L30.9 Dermatitis, unspecified (principal) | CPT/HCPCS: 99212 ==

== ENCOUNTER 2024-12-12 07:58 | Outpatient (AMB) | payer OTHER, SELFPAY ==
[2024-12-12 08:13] VITALS: BP 130/84; PULSE 63; TEMP 36.9; O2SAT 94
--- NOTE | 2024-12-12 08:13 | AM.OFFWIN_ITS ---
Intake Vital Signs 12/12/24 08:13 Weight 181 lb BP 130/84 Blood Pressure Location Rt brachial Position Sitting Pulse 63 Pulse Source Pulse Oximeter Temp 98.4 F Temp Source Oral Pulse Oximetry (%) 94 Oxygen Delivery Method Room Air Intake Visit Reasons: EP cold, constant cough, chest congestion Intake Note: Patient here for fever, difficulty breathing, cough and crackling that started yesterday. Patient Tobacco Use Status: Never used Tobacco Allergies lisinopril Allergy (Unknown, Verified 12/12/24 08:16) cough Do you need a note to return to daycare/school/sports/work: No HPI HPI Comments 2 History of Present Illness Details He presents with cold symptoms since Tuesday States yesterday symptoms worsening States abdirahman lópez, concerned for bronchitis He said + fever associated + poor sleep and felt crackling in lungs Cough keeping him up at night No phlegm associated He has tried dayquil and tylenol He said + fatigue and body aches No congestion, ST, ear pain PFSH Surgical History No pertinent past surgical history Family History Father HTN (hypertension) Diabetes mellitus Mother No problems noted. Sister HTN (hypertension) Social History Housing: House Patient Tobacco Use Status: Never used Tobacco e-Cigarette/Vaping Use: Never Used service: Yes Current occupational status: employed Cognitive needs: No Hearing needs: No Vision needs: No Review of Systems Const Reports chills, Reports fatigue, Reports fever(s) and Reports poor appetite Eyes Denies change in vision ENT Denies dizziness, Denies otalgia, Denies nasal congestion, Denies sinus pressure and Denies throat swelling Card Denies chest pain, Denies syncope and Denies dyspnea on exertion Resp Denies change in phlegm color, Reports chest congestion, Reports cough and Denies dyspnea on exertion Musc Reports myalgias Neuro Denies dizziness and Denies syncope Endo Reports fatigue Aller/Immun Denies throat swelling Physical Exam Vital Signs: Last Vital Signs Temp 98.4 F 12/12/24 08:13 Pulse 63 12/12/24 08:13 BP 130/84 12/12/24 08:13 Pulse Ox 94 12/12/24 08:13 Oxygen Delivery Method Room Air 12/12/24 08:13 General: Non-toxic, NAD. Speaking full sentences. Skin: Warm dry throughout Eye: EOMI HENT: Airway patent. Uvula midline. No pharyngeal erythema or edema. No [employer]. Bilateral canals clear. TM non-erythematous, non-bulging. No TM perforation or hemotympanum noted. Respiratory: CTA bilaterally. No wheezes, rales or rhonchi Cardiac: RRR. No murmur MSK: Full ROM extremities. Neurology: Alert. No aphasia or facial droop. Gait without abnormality Psych: Good mood and affect Assessment & Plan Assessment & Plan (1) Influenza-like illness: Code(s): J11.1 - Influenza due to unidentified influenza virus with other respiratory manifestations Plan: Patient seen and evaluated. Lungs CTA We discussed influenza swab but he is out of out of tamiflu window Discussed tylenol, nyquil and tessalon Fever control Increase fluids/rest Mask wearing around others Patient gave verbal understanding and had no additional questions or concerns at time of discharge All questions answered Medications: New benzonatate 200 mg PO BID-TID PRN 20 caps 0RF cough Coding Level of Care Code Est Pt Level 3 (97665) Diagnoses Influenza-like illness J11.1
== END 2024-12-12 08:28 | disposition home or self-care (01) ==
PROVIDERS: PCP Internal Medicine; Visit Provider Physician Assistant
DX: J11.1 Influenza due to unidentified influenza virus with other respiratory manifestations (principal)

== ENCOUNTER → 2024-12-12 07:58 | Outpatient (BNVA) | payer OTHER, SELFPAY | PROVIDERS: PCP Internal Medicine | DX: J11.1 Influenza due to unidentified influenza virus with other respiratory manifestations (principal) | CPT/HCPCS: 99212 ==

== ENCOUNTER 2025-01-30 11:28 | Outpatient (AMB) | payer OTHER, SELFPAY ==
--- NOTE | 2025-01-30 11:30 | A.OFFPC_ITS ---
Vital Signs 01/30/25 11:31 Height 5 ft 10 in Weight 185 lb 6 oz BMI 26.6 BP 138/90 H Blood Pressure Location Lt brachial Position Sitting Pulse 87 Pulse Source Pulse Oximeter Pulse Oximetry (%) 96 Oxygen Delivery Method Room Air Intake Visit Reasons: PE Allergies lisinopril Allergy (Unknown, Verified 01/30/25 11:31) cough Medication List - Last Reconciled 01/30/25 by Blossom Cui MD atorvastatin 20 mg PO DAILY losartan-hydrochlorothiazide 100-25 mg 1 tab PO DAILY 90 days Tobacco use date assessed: 01/30/25 Dental Screening Dental Screen Date: 01/30/25 Did you have a dental visit in the last 12 months?: Yes Did you have a dental problem in the last 6 months where you did not have access to dental care?: No Was dental information given to patient?: Patient has dentist HPI PE HPI Details PE apt - The patient is a 60-year-old male pres enting with hypertension and hyperlipidemia. - Reports hypertension with home blood p ressure readings averaging 130/87 mmHg and reaching 130/90 mmHg on stressful days, compared to the normal 120/80 mmHg. - Currently on losartan hydrochlorothiaz jose r 100-25 mg, at maximum dosing, yet the hypertension persists. Blood pressure monitoring advice includes twice weekl y checks and recording results. - Hyperlipidemia under management with a torvastatin 20 mg. - Overdue laboratory tests initially hardy eduled for September following an order from April last year. - No history of colonoscopy, and conside rations for undergoing the procedure were discussed. - Vaccination history indicates a tetanu s vaccine outside the clinic, potentially related to the health of a newly welcomed grandchild. Health Maintenance - Blood pressure management: monitoring at home with twice-weekly checks. - Previous tetanus vaccination in 2013 w ith mention of a more recent one outside the clinic; confirmation pending. - Requirement for updated laboratory yanira ts, to be done fasting for 10 hours. - Advised on considering a colonoscopy s creening. But patient declined Medications - Atorvastatin 20 mg for hyperlipidemia - Losartan hydrochlorothiazide 100-25 mg for essential hypertension Diagnostic results - Labs: Mention of overdue blood tests i nitially ordered last April and expected in September. Patient Instructions - Monitor blood pressure twice a week. S it down and relax for five minutes before taking the measurement. Record and bring readings to the next visit. - Schedule and complete the overdue bloo d tests, ensuring fasting for 10 hours prior. - Discuss with family about scheduling a colonoscopy. - Confirm the status of the tetanus vacc ine, providing documentation if done outside the clinic. - Continue current medications (atorvast atin and losartan hydrochlorothiazide) and start taking the atenolol 25 mg, prescribed antihypertensive medication d aily. - Contact pharmacy for vaccination recor ds and send them for clinic documentation. Review of Systems - General: No fever no chills - Neurological: No headaches no dizzin ess - Ear nose throat: No sore throat no hearing difficulty no ear pain - Cardiovascular: No syncope, no chest pain, no palpitations - Gastrointestinal: No nausea vomiting or diarrhea - Endocrine: No polyuria polydipsia no heat intolerance - Genitourinary: No dysuria - Skin: No new complaints Physical Exam General: Cooperative, healthy appearing, comfortable, no acute distress Orientation: Patient oriented x3 Head: Normal to inspection Ears: Within normal limit visually Nose: Normal external nose present Face and sinus: Normal facial exam Eyes: Appearance normal, extraocular movement intact pupils reactive Neck: Normal visual inspection and supple Respiratory: Normal respiratory effort and able to speak in complete sentences. Clear to auscultation, no stridor Cardiovascular: S1 and S2 GI: Normal to inspection. Soft to palpation and nontender Skin: Turgor normal, no acute findings Neuro: Patient oriented x3, motor sensory intact, balance intact, tandem pass Extremities: Normal to inspection [facility] Surgical History No pertinent past surgical history Family History Father HTN (hypertension) Diabetes mellitus Mother No problems noted. Sister HTN (hypertension) Social History Housing: House Patient Tobacco Use Status: Never used Tobacco e-Cigarette/Vaping Use: Never Used service: Yes Current occupational status: employed Cognitive needs: No Hearing needs: No Vision needs: No Questionnaire PHQ-9 Over the last 2 weeks, how often have you been bothered by any of the following problems? 1. Little interest or pleasure in doing things: not at all 2. Feeling down, depressed, or hopeless: not at all 3. Trouble falling or staying asleep, or sleeping too much: not at all 4. Feeling tired or having little energy: not at all 5. Poor appetite or overeating: not at all 6. Feeling bad about yourself - or that you are a failure or have let yourself or your family down: not at all 7. Trouble concentrating on things, such as reading the newspaper or watching television: not at all 8. Moving or speaking so slowly that other people could have noticed. Or the opposite - being so fidgety or restless that you have been moving around a lot more than usual: not at all 9. Thoughts that you would be better off or of hurting yourself in some way: not at all Total score: 0 Depression Screening Interpretation: Negative Depression Screening Done: Yes 69951 - PHQ-9 Billing: Yes Source: Developed by Drs. Reji Henson, Manuela Jordan, Galdino Harris and colleagues, with an educational olman from [email or web address]. Thrive Questionnaire Date Thrive assessed: 01/20/24 I am a: Patient What is your living situation today?: I have a steady place to live Within the past 12 months, did the food you bought not last and you didn't have the money to get more?: Never true Within the past 12 months, did you worry whether your food would run out before you got money to buy more?: Never true Do you have trouble paying for medicines?: No Do you have trouble getting transportation to medical appointments?: No Do you have trouble paying your heating and electricity bill?: No Do you have trouble taking care of your child, family member or friend?: No Do you have trouble with day-to-day activities such as bathing, preparing meals, shopping, managing finances, etc.?: No Are you currently unemployed and looking for a job?: No Are you interested in more education?: No Please select the resources that you would like help with: None Currently or been in a relationship where the following occur: No concerns reported THRIVE Score: 0 AUDIT C Alcohol Use Questionnaire (AUDIT-C) 1. How often do you have a drink containing alcohol?: 2-4 times a month 2. How many drinks containing alcohol do you have on a typical day when you are drinking?: 1 or 2 3. How often do you have six or more drinks on one occasion?: Never Total Score: 2 MAIK-7 AMB Questionnaire MAIK-7 Date MAIK - 7 assessed: 01/20/24 Feeling nervous, anxious, or on edge: 0 = Not at all Not being able to stop or control worryin = Not at all Worrying too much about different things: 0 = Not at all Trouble relaxin = Not at all Being so restless that it is hard to sit still: 0 = Not at all Becoming easily annoyed or irritable: 0 = Not at all Feeling afraid as if something awful might happen: 0 = Not at all Total MAIK-7 score (0-4 normal; 5-9 mild; 10-14 moderate; 15-21 severe): 0 Source: Developed by Drs. Reji Henson, Manuela Jordan, Galdino Harris and colleagues, with an educational olman from [email or web address]. Physical exam (Primary Care) Vital Signs: Last Vital Signs Pulse 87 01/30/25 11:31 BP 138/90 H 01/30/25 11:31 Pulse Ox 96 01/30/25 11:31 Oxygen Delivery Method Room Air 01/30/25 11:31 BMI result Body Mass Index 26.6 Tobacco/Smoking Status: Tobacco use Status Tobacco use date assessed 01/30/25 01/30/25 11:38 Patient Tobacco Use Status Never used Tobacco 01/30/25 11:38 e-Cigarette/Vaping Use Never Used 01/30/25 11:38 PHQ-9: PHQ-9 Score PHQ-9: Total score 0 01/30/25 11:56 Depression Screening Interpretation: Negative Thrive Assessment: Date of Thrive Assessment Date Thrive assessed 01/20/24 01/30/25 11:38 Currently or been in a relationship where the following occur: No concerns reported Coding Level of Care Code Est Pt Level 3 (10589) Est Pt Prev Care 40-64y(06698) Diagnoses Encounter for general adult medical examination with abnormal findings Z00.01 Uncontrolled hypertension I10 Lipid disorder E78.9 Colonoscopy refused Z53.20 Additional Codes PHQ-9 - 84595 - PHQ-9 Billing: Yes ([id number]) Assessment & Plan Assessment & Plan (1) Encounter for general adult medical examination with abnormal findings: Code(s): Z00.01 - Encounter for general adult medical examination with abnormal findings Category: Medical (2) Uncontrolled hypertension: Code(s): I10 - Essential (primary) hypertension Category: Medical (3) Lipid disorder: Code(s): E78.9 - Disorder of lipoprotein metabolism, unspecified Category: Medical (4) Colonoscopy refused: Code(s): Z53.20 - Procedure and treatment not carried out because of patient's decision for unspecified reasons Category: Medical Plan PE apt - The patient is a 60-year-old male presenting with hypertension and hyperlipidemia. - Reports hypertension with home blood pressure readings averaging 130/87 mmHg and reaching 130/90 mmHg on stressful days, compared to the normal 120/80 mmHg. - Currently on losartan hydrochlorothiazide 100-25 mg, at maximum dosing, yet the hypertension persists. Blood pressure monitoring advice includes twice weekly checks and recording results. - Hyperlipidemia under management with atorvastatin 20 mg. - Overdue laboratory tests initially scheduled for September following an order from April last year. - No history of colonoscopy, and considerations for undergoing the procedure were discussed. - Vaccination history indicates a tetanus vaccine outside the clinic, potentially related to the health of a newly welcomed grandchild. Health Maintenance - Blood pressure management: monitoring at home with twice-weekly checks. - Previous tetanus vaccination in 2013 with mention of a more recent one outside the clinic; confirmation pending. - Requirement for updated laboratory tests, to be done fasting for 10 hours. - Advised on considering a colonoscopy screening. But patient declined Medications - Atorvastatin 20 mg for hyperlipidemia - Losartan hydrochlorothiazide 100-25 mg for essential hypertension Diagnostic results - Labs: Mention of overdue blood tests initially ordered last April and expected in September. Patient Instructions - Monitor blood pressure twice a week. Sit down and relax for five minutes before taking the measurement. Record and bring readings to the next visit. - Schedule and complete the overdue blood tests, ensuring fasting for 10 hours prior. - Discuss with family about scheduling a colonoscopy. - Confirm the status of the tetanus vaccine, providing documentation if done outside the clinic. - Continue current medications (atorvastatin and losartan hydrochlorothiazide) and start taking the atenolol 25 mg, prescribed antihypertensive medication daily. - Contact pharmacy for vaccination records and send them for clinic documentation. Medications: New atenolol 25 mg PO DAILY 90 tabs 0RF
[2025-01-30 11:31] VITALS: BP 138/90; PULSE 87; O2SAT 96; BMI 26.6
== END 2025-01-30 11:57 | disposition home or self-care (01) ==
LOC: HO.HMCC 11:29
PROVIDERS: PCP Internal Medicine; Visit Provider Internal Medicine
DX: Z00.01 Encounter for general adult medical examination with abnormal findings (principal); I10 Essential (primary) hypertension; E78.9 Disorder of lipoprotein metabolism, unspecified; Z53.20 Procedure and treatment not carried out because of patient's decision for unspecified reasons

== ENCOUNTER → 2025-01-30 11:28 | Outpatient (BNVA) | payer OTHER, SELFPAY | PROVIDERS: PCP Internal Medicine; Visit Provider Internal Medicine | DX: Z00.01 Encounter for general adult medical examination with abnormal findings (principal); I10 Essential (primary) hypertension; E78.9 Disorder of lipoprotein metabolism, unspecified | CPT/HCPCS: 96127; 99212; 99396 ==

== ENCOUNTER 2025-05-20 06:48 | Outpatient (REF) | payer OTHER, SELFPAY ==
[2025-05-20 10:07] LABS: MANUAL DIFF FLAG NO
[2025-05-20 10:22] LABS: Hematocrit 41.4 % (42.0-52.0); Hemoglobin 14.1 g/dl (14.0-18.0); Imm Gran Abs Auto 0.02 X10*3/uL (0.00-0.03); Imm Gran Pct Auto 0.3 % (0.0-0.4); Lymphocytes Absolute Auto 2.7 X10*3/uL (1.2-4.9); Mean Corpuscular HGB Conc 34.1 g/dl (31.0-36.0); Mean Corpuscular Hemoglobin 31.5 pg (27.0-33.0); Mean Corpuscular Volume 92.6 fL (80.0-98.0); NRBC Abs Auto 0.000 X10*3/uL (0.0-0.012); NRBC Pct Auto 0.0 /100WBC (0.0-0.2); Platelet Count 213 X10*3/uL (160-400); Red Blood Count 4.47 X10*6/uL (4.60-5.80); White Blood Count 6.4 X10*3/uL (4.8-10.8)
[2025-05-20 10:48] LABS: Albumin Level 4.6 g/dL (3.5-5.0); Alkaline Phosphatase 60 U/L (39-117); Anion Gap 11 (12-20); Aspartate Amino Transferase 40 U/L (5-37); Blood Urea Nitrogen 22 mg/dL (9-16); Calcium 9.2 mg/dL (8.4-10.2); Carbon Dioxide 27 mmol/L (22-29); Chloride 108 mmol/L (96-108); Cholesterol 181 mg/dL (<200); Estimated Glomerular Filt Rate > 60; HDL Cholesterol 48 mg/dL (>40); Potassium 3.6 mmol/L (3.3-5.1); Sodium 142 mmol/L (135-145); Total Protein 7.4 g/dL (6.5-8.0); Triglycerides 83 mg/dL (<150)
[2025-05-20 11:32] LABS: Alanine Aminotransferase 46 U/L (0-40)
== END 2025-05-20 06:49 | disposition home or self-care (01) ==
LOC: HO.HMGCLDS 06:48
PROVIDERS: PCP Internal Medicine; Visit Provider Internal Medicine
DX: I10 Essential (primary) hypertension (principal); I34.1 Nonrheumatic mitral (valve) prolapse; E78.9 Disorder of lipoprotein metabolism, unspecified
CPT/HCPCS: 36415; 80053; 80061; 85025

== ENCOUNTER 2025-05-24 08:54 | Outpatient (AMB) | payer OTHER, SELFPAY ==
[2025-05-24 09:04] VITALS: BP 136/84; PULSE 62; O2SAT 96; BMI 26.8
--- NOTE | 2025-05-24 09:04 | A.OFFPC_ITS ---
Vital Signs 05/24/25 09:04 Height 5 ft 10 in Weight 187 lb BMI 26.8 BP 136/84 Blood Pressure Location Lt brachial Position Sitting Pulse 62 Pulse Source Pulse Oximeter Pulse Oximetry (%) 96 Oxygen Delivery Method Room Air Intake Visit Reasons: 3m follow up reschedule Allergies lisinopril Allergy (Unknown, Verified 05/24/25 09:04) cough Medication List - Last Reconciled 05/24/25 by Blossom Cui MD atenolol 25 mg PO DAILY atorvastatin 20 mg PO DAILY losartan-hydrochlorothiazide 100-25 mg 1 tab PO DAILY 90 days Tobacco use date assessed: 01/30/25 Dental Screening Dental Screen Date: 01/30/25 HPI 3m follow up reschedule HPI Details History - The patient is a 60-year-old male pres enting for review of medication and blood work results. - There were concerns regarding mildly e levated liver enzymes noted on recent lab work, though these elevations were not significant. - AST reported at 40 (normal <37), ALT r eported at 46 (normal <40); previously normal liver function tests. - Patient consumes alcohol occasionally, noted possible alcohol contribution to liver enzyme elevation. - Past elevated blood pressure reading w as noted, with improvement on the current visit. - No current complaints or new symptoms reported by the patient. Medical History: - Hypertension - Hyperlipidemia Medications: - Atenolol 25 mg for hypertension - Atorvastatin 20 mg for hyperlipidemia - Losartan/Hydrochlorothiazide 100/25 mg for hypertension Social History: - Occasional alcohol consumption noted Diagnostic Results: - Labs: - CBC is normal; no anemia or ab normalities - Metabolic profile shows normal electro lytes and kidney function - Fasting blood sugar is 95, within norm al range - Liver enzymes: AST 40 (normal <37), AL T 46 (normal <40) Problem List - Hypertension - Hyperlipidemia - Elevated Liver Enzymes Patient Instructions - Reduce alcohol consumption as it may i mpact liver enzyme levels. - Continue taking medications as prescri bed for hypertension and hyperlipidemia. - No need for fasting prior to the next lab tests to be conducted in three months. - Schedule a follow-up appointment in for routine monitoring and repeat blood work. Review of Systems - General: No fever no chills - Neurological: No headaches no dizziness - Ear nose throat: No sore throat no hearing difficulty no ear pain - Cardiovascular: No syncope, no chest pain, no palpitations - Gastrointestinal: No nausea vomiting or diarrhea - Endocrine: No polyuria polydipsia no heat intolerance - Genitourinary: No dysuria , no blood in urine Physical Exam General: No acute distress HEENT: No acute findings Neck: Supple Respiratory system: Able to talk in full sentences, no audible wheeze Cardiovascular: S1-S2 regular in rate and rhythm Gastrointestinal: No pain, no nausea, vomiting, abdominal pain Extremities: No new findings, no swelling of ankles DOCTOR OF DENTAL MEDICINE: Alert awake oriented x3 motor sensory intact Skin: Normal turgor [facility] Surgical History No pertinent past surgical history Family History Father HTN (hypertension) Diabetes mellitus Mother No problems noted. Sister HTN (hypertension) Social History Housing: House Patient Tobacco Use Status: Never used Tobacco e-Cigarette/Vaping Use: Never Used service: Yes Current occupational status: employed Cognitive needs: No Hearing needs: No Vision needs: No Questionnaire Thrive Questionnaire Date Thrive assessed: 01/20/24 I am a: Patient What is your living situation today?: I have a steady place to live Within the past 12 months, did the food you bought not last and you didn't have the money to get more?: Never true Within the past 12 months, did you worry whether your food would run out before you got money to buy more?: Never true Do you have trouble paying for medicines?: No Do you have trouble getting transportation to medical appointments?: No Do you have trouble paying your heating and electricity bill?: No Do you have trouble taking care of your child, family member or friend?: No Do you have trouble with day-to-day activities such as bathing, preparing meals, shopping, managing finances, etc.?: No Are you currently unemployed and looking for a job?: No Are you interested in more education?: No Please select the resources that you would like help with: None Currently or been in a relationship where the following occur: No concerns reported THRIVE Score: 0 MAIK-7 AMB Questionnaire MAIK-7 Date MAIK - 7 assessed: 01/20/24 Source: Developed by Drs. Reji Henson, Manuela Jordan, Galdino Harris and colleagues, with an educational olman from [employer]. Physical exam (Primary Care) Vital Signs: Last Vital Signs Pulse 62 05/24/25 09:04 BP 136/84 05/24/25 09:04 Pulse Ox 96 05/24/25 09:04 Oxygen Delivery Method Room Air 05/24/25 09:04 BMI result Body Mass Index 26.8 Tobacco/Smoking Status: Tobacco use Status Tobacco use date assessed 01/30/25 05/24/25 09:06 Patient Tobacco Use Status Never used Tobacco 05/24/25 09:06 e-Cigarette/Vaping Use Never Used 05/24/25 09:06 Thrive Assessment: Date of Thrive Assessment Date Thrive assessed 01/20/24 05/24/25 09:06 Currently or been in a relationship where the following occur: No concerns reported Coding Level of Care Code Est Pt Level 3 (24232) Diagnoses LFT elevation R79.89 Essential (primary) hypertension I10 Lipid disorder E78.9 Assessment & Plan Assessment & Plan (1) LFT elevation: Code(s): R79.89 - Other specified abnormal findings of blood chemistry Category: Medical (2) Essential (primary) hypertension: Code(s): I10 - Essential (primary) hypertension Category: Medical (3) Lipid disorder: Code(s): E78.9 - Disorder of lipoprotein metabolism, unspecified Category: Medical Plan History - The patient is a 60-year-old male presenting for review of medication and blood work results. - There were concerns regarding mildly elevated liver enzymes noted on recent lab work, though these elevations were not significant. - AST reported at 40 (normal <37), ALT reported at 46 (normal <40); previously normal liver function tests. - Patient consumes alcohol occasionally, noted possible alcohol contribution to liver enzyme elevation. - Past elevated blood pressure reading was noted, with improvement on the current visit. - No current complaints or new symptoms reported by the patient. Medical History: - Hypertension - Hyperlipidemia Medications: - Atenolol 25 mg for hypertension - Atorvastatin 20 mg for hyperlipidemia - Losartan/Hydrochlorothiazide 100/25 mg for hypertension Social History: - Occasional alcohol consumption noted Diagnostic Results: - Labs: - CBC is normal; no anemia or abnormalities - Metabolic profile shows normal electrolytes and kidney function - Fasting blood sugar is 95, within normal range - Liver enzymes: AST 40 (normal <37), ALT 46 (normal <40) Problem List - Hypertension - Hyperlipidemia - Elevated Liver Enzymes Patient Instructions - Reduce alcohol consumption as it may impact liver enzyme levels. - Continue taking medications as prescribed for hypertension and hyperlipidemia. - No need for fasting prior to the next lab tests to be conducted in three months. - Schedule a follow-up appointment in three months for routine monitoring and repeat blood work. Orders: Orders Comprehensive Met. Panel Today R79.89 - Other specified abnormal findings of blood chemistry
== END 2025-05-24 09:20 | disposition home or self-care (01) ==
LOC: HO.HMCC 08:55
PROVIDERS: PCP Internal Medicine; Visit Provider Internal Medicine
DX: R79.89 Other specified abnormal findings of blood chemistry (principal); I10 Essential (primary) hypertension; E78.9 Disorder of lipoprotein metabolism, unspecified

== ENCOUNTER → 2025-05-24 08:54 | Outpatient (BNVA) | payer OTHER, SELFPAY | PROVIDERS: PCP Internal Medicine; Visit Provider Internal Medicine | DX: I10 Essential (primary) hypertension (principal); R79.89 Other specified abnormal findings of blood chemistry; E78.9 Disorder of lipoprotein metabolism, unspecified | CPT/HCPCS: 99212 ==

== ENCOUNTER 2025-09-03 07:24 | Outpatient (REF) | payer OTHER, SELFPAY ==
[2025-09-03 11:11] LABS: Alanine Aminotransferase 33 U/L (0-40); Albumin Level 4.4 g/dL (3.5-5.0); Alkaline Phosphatase 59 U/L (39-117); Anion Gap 8 (12-20); Aspartate Amino Transferase 39 U/L (5-37); Blood Urea Nitrogen 21 mg/dL (9-16); Calcium 9.0 mg/dL (8.4-10.2); Carbon Dioxide 29 mmol/L (22-29); Chloride 107 mmol/L (96-108); Estimated Glomerular Filt Rate > 60; Potassium 3.9 mmol/L (3.3-5.1); Sodium 140 mmol/L (135-145); Total Protein 6.9 g/dL (6.5-8.0)
== END 2025-09-03 07:25 | disposition home or self-care (01) ==
LOC: HO.HMGCLDS 07:24
PROVIDERS: PCP Internal Medicine; Visit Provider Internal Medicine
DX: R79.89 Other specified abnormal findings of blood chemistry (principal)
CPT/HCPCS: 36415; 80053

== ENCOUNTER 2025-10-09 11:12 | Outpatient (AMB) | payer OTHER, SELFPAY ==
[2025-10-09 11:17] VITALS: BP 146/84; PULSE 73; O2SAT 98; BMI 25.5
--- NOTE | 2025-10-09 11:17 | MHC.PC.OV ---
Vital Signs 10/09/25 11:17 Height 5 ft 10 in Weight 178 lb BMI 25.5 BP 146/84 H Blood Pressure Location Lt brachial Position Sitting Pulse 73 Pulse Source Pulse Oximeter Pulse Oximetry (%) 98 Intake Visit Reasons: BP check Allergies lisinopril Allergy (Unknown, Verified 10/09/25 11:17) cough Medication List - Last Reconciled 10/09/25 by Blossom Cui MD atenolol 25 mg PO DAILY atorvastatin 20 mg PO DAILY losartan-hydrochlorothiazide 100-25 mg 1 tab PO DAILY 90 days Tobacco use date assessed: 01/30/25 Dental Screening Dental Screen Date: 01/30/25 HPI BP check HPI Details History of Present Illness The patient is a 60 year old male presenting for follow-up for management of hypertension. Essential Hypertension: - The patient presents for follow-up of persistently elevated blood pressure readings at home, with values in the 140s and 160s systolic. - The diastolic pressure is noted to be a particular problem. - He acknowledges that work-related stress may contribute to his elevated blood pressure, but states the condition has been present for a long time. - Current medications include losartan-hydrochlorothiazide and atenolol 25 mg. Hypercholesterolemia: - The patient is taking atorvastatin for hypercholesterolemia without issue. - Lab results from April showed a significant reduction in his total cholesterol from 173 to 117. 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 - Nutrition: Reports consuming honey, approximately 3 teaspoons, and has a cough. He eats rye/brown bread but avoids white bread and other sweets like cookies and donuts. Diet includes chicken, fish, and turkey. - Stress: Reports some work-related stress. Family History: - Father had diabetes. Diagnostic Results: - Home blood glucose: 99 mg/dL, fasting. - Total cholesterol (April): 117, decreased from a previous value of 173. Problem List - Essential Hypertension - Hypercholesterolemia - Prediabetes Plan - The current medication regimen of losartan-hydrochlorothiazide will be continued for hypertension. - The dose of atenolol will be increased to 50 mg daily. A new prescription for atenolol 50 mg will be sent to [facility] [address]. - The patient was advised to continue his current diet. He was reassured that honey is beneficial, and he should continue to avoid white sugar, white flour, and reduce bread intake while increasing fruits, vegetables, and lean proteins like chicken, fish, and turkey. - A fasting blood test will be ordered to be completed before the next visit. - The patient will be re-evaluated in three months to assess blood pressure control, with further medication adjustments if needed. - He is scheduled for a physical in January. Review of Systems - General: No fever no chills - Neurological: No headaches no dizziness - Ear nose throat: No sore throat no hearing difficulty no ear pain - Cardiovascular: No syncope, no chest pain, no palpitations - Gastrointestinal: No nausea vomiting or diarrhea - Endocrine: No polyuria polydipsia no heat intolerance - Genitourinary: No dysuria , no blood in urine Physical Exam - General: No acute distress - HEENT: No acute findings - Neck: Supple - Respiratory system: Able to talk in full sentences, no audible wheeze - Cardiovascular: S1-S2 regular in rate and rhythm - Gastrointestinal: No pain - Extremities: No new findings - 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 Sister HTN (hypertension) Social History Housing: House Patient Tobacco Use Status: Never used Tobacco e-Cigarette/Vaping Use: Never Used service: Yes Current occupational status: employed Cognitive needs: No Hearing needs: No Vision needs: No Questionnaire Thrive Questionnaire Date Thrive assessed: 01/30/25 I am a: Patient What is your living situation today?: I have a steady place to live Within the past 12 months, did the food you bought not last and you didn't have the money to get more?: Never true Within the past 12 months, did you worry whether your food would run out before you got money to buy more?: Never true Do you have trouble paying for medicines?: No Do you have trouble getting transportation to medical appointments?: No Do you have trouble paying your heating and electricity bill?: No Do you have trouble taking care of your child, family member or friend?: No Do you have trouble with day-to-day activities such as bathing, preparing meals, shopping, managing finances, etc.?: No Are you currently unemployed and looking for a job?: No Are you interested in more education?: No Please select the resources that you would like help with: None Currently or been in a relationship where the following occur: No concerns reported THRIVE Score: 0 AUDIT C Alcohol Use Questionnaire (AUDIT-C) 1. How often do you have a drink containing alcohol?: 2-4 times a month 2. How many drinks containing alcohol do you have on a typical day when you are drinking?: 1 or 2 3. How often do you have six or more drinks on one occasion?: Never Total Score: 2 Score Reviewed/Action Taken: Yes MAIK-7 AMB Questionnaire MAIK-7 Date MAIK - 7 assessed: 10/09/25 Feeling nervous, anxious, or on edge: 0 = Not at all Not being able to stop or control worryin = Not at all Worrying too much about different things: 0 = Not at all Trouble relaxin = Not at all Being so restless that it is hard to sit still: 0 = Not at all Becoming easily annoyed or irritable: 0 = Not at all Feeling afraid as if something awful might happen: 0 = Not at all Total MAIK-7 score (0-4 normal; 5-9 mild; 10-14 moderate; 15-21 severe): 0 Source: Developed by Drs. Reji Henson, Manuela Jordan, Galdino Harris and colleagues, with an educational olman from [employer]. MAIK-7 Assessment Billing MAIK-7 Assessment Tool: MAIK-7 Assessment 44397 Physical exam (Primary Care) Vital Signs: Last Vital Signs Pulse 73 10/09/25 11:17 BP 146/84 H 10/09/25 11:17 Pulse Ox 98 10/09/25 11:17 BMI result Body Mass Index 25.5 Tobacco/Smoking Status: Tobacco use Status Tobacco use date assessed 01/30/25 10/09/25 11:19 Patient Tobacco Use Status Never used Tobacco 10/09/25 11:19 e-Cigarette/Vaping Use Never Used 10/09/25 11:19 Thrive Assessment: Date of Thrive Assessment Date Thrive assessed 01/30/25 10/09/25 11:19 Currently or been in a relationship where the following occur: No concerns reported Coding Level of Care Code Est Pt Level 3 (09365) Diagnoses Essential (primary) hypertension I10 Lipid disorder E78.9 Additional Codes MAIK-7 Assessment Billing - MAIK-7 Assessment Tool: MAIK-7 Assessment 82420 ([id number]) Assessment & Plan Assessment & Plan (1) Essential (primary) hypertension: Code(s): I10 - Essential (primary) hypertension Category: Medical (2) Lipid disorder: Code(s): E78.9 - Disorder of lipoprotein metabolism, unspecified Category: Medical Plan Problem List - Essential Hypertension - Hypercholesterolemia - Prediabetes Plan - The current medication regimen of losartan-hydrochlorothiazide will be continued for hypertension. - The dose of atenolol will be increased to 50 mg daily. A new prescription for atenolol 50 mg will be sent to [facility] [address]. - The patient was advised to continue his current diet. He was reassured that honey is beneficial, and he should continue to avoid white sugar, white flour, and reduce bread intake while increasing fruits, vegetables, and lean proteins like chicken, fish, and turkey. - A fasting blood test will be ordered to be completed before the next visit. - The patient will be re-evaluated in three months to assess blood pressure control, with further medication adjustments if needed. - He is scheduled for a physical in January. Medications: Changed From atenolol 25 mg PO DAILY 90 tabs 0RF To atenolol 50 mg PO DAILY 90 tabs 0RF
== END 2025-10-09 11:45 | disposition home or self-care (01) ==
LOC: HO.HMCC 11:13
PROVIDERS: PCP Internal Medicine; Visit Provider Internal Medicine
DX: I10 Essential (primary) hypertension (principal); E78.9 Disorder of lipoprotein metabolism, unspecified

== ENCOUNTER → 2025-10-09 11:12 | Outpatient (BNVA) | payer OTHER, SELFPAY | PROVIDERS: PCP Internal Medicine; Visit Provider Internal Medicine | DX: I10 Essential (primary) hypertension (principal); E78.9 Disorder of lipoprotein metabolism, unspecified; Z13.31 Encounter for screening for depression | CPT/HCPCS: 96127; 99212 ==